=== PATIENT | female | born 1985 | race Caucasian/White ===

== ENCOUNTER → 2017-03-31 | Outpatient (REF) | payer BC | LOC: M LAB REF 12:55 | PROVIDERS: ATTEND Nurse Practitioner Adult Health | DX: R63.4 Abnormal weight loss (principal); F41.9 Anxiety disorder, unspecified ==

== ENCOUNTER → 2017-10-06 | Outpatient (REF) | payer BC | LOC: M LAB REF 12:08 | PROVIDERS: ATTEND Nurse Practitioner Adult Health | DX: J31.0 Chronic rhinitis (principal) ==

== ENCOUNTER → 2018-10-06 | Outpatient (CLI) | payer BC ==
[~2018-10-06] MED LIST: PROHANCE 279.3MG/ML 15ML VIAL (A9576) As Ordered; PROHANCE 279.3MG/ML 5ML VIAL (A9576) As Ordered
== END ==
LOC: M RAD 08:52
DX: R16.0 Hepatomegaly, not elsewhere classified (principal)
CPT/HCPCS: A9576

== ENCOUNTER → 2018-12-27 | Outpatient (CLI) | payer BC ==
[~2018-12-27] MED LIST changes: -PROHANCE 279.3MG/ML 15ML VIAL (A9576) As Ordered; +PROHANCE 279.3MG/ML 15ML VIAL (A9576) As Ordered ONE; -PROHANCE 279.3MG/ML 5ML VIAL (A9576) As Ordered
--- NOTE | 2018-12-27 13:36 | REP ---
MRI ABDOMEN WITH AND WITHOUT CONTRAST: TECHNIQUE: Multiple sequences are obtained in the axial and coronal planes prior to and following the intravenous administration of 15 mL ProHance. Comparison is made with prior study of 10/06/2018. Once again in the caudate lobe of the liver there is a mass which is heterogenous in signal, predominately slightly hyperintense on T2 with heterogenous arterial phase enhancement. It measures approximately 6.2 x 4.4 x 5.4 cm and is unchanged since the prior MRI of 10/06/2018. Smaller enhancing nodule in the adjacent posterior segment of the right lobe of the liver is also stable. No new liver mass is seen. Spleen, adrenals, pancreas, and kidneys are again unremarkable. I see no adenopathy or free fluid in the abdomen. IMPRESSION: Stable mass in the caudate lobe of the liver as discussed above. Continued followup is recommended. There is a stable subcentimeter nodule in the posterior segment of the right lobe of the liver which is benign. No new mass or adenopathy. Electronically Signed by Anil Glover MD 12/27/2018 11:40 P
== END ==
LOC: M RAD 08:21
PROVIDERS: ATTEND Surgery
DX: D37.6 Neoplasm of uncertain behavior of liver, gallbladder and bile ducts (principal); R16.0 Hepatomegaly, not elsewhere classified
CPT/HCPCS: 74183; A9576

== ENCOUNTER → 2019-05-31 | Outpatient (REF) | payer BC ==
[2019-05-31 18:15] LABS: CHLAMYDIA DNA AMPLIFICATION NEGATIVE (NEGATIVE); GC DNA AMPLIFICATION NEGATIVE (NEGATIVE)
[2019-06-01 11:43] LABS: HEPATITIS A ANTIBODY IGM NEGATIVE (NEGATIVE); HEPATITIS B CORE ANTIBODY IGM NEGATIVE (NEGATIVE); HEPATITIS B SURFACE ANTIGEN NEGATIVE (NEGATIVE); HEPATITIS C VIRUS ABY INDEX 0.1 INDEX (<0.8)
[2019-06-03 00:07] LABS: HSV IgM TYPES 1&2 1.45 Ratio (0.00-0.90)
== END ==
LOC: M LAB REF 16:39
PROVIDERS: ATTEND Nurse Practitioner Adult Health
DX: Z11.59 Encounter for screening for other viral diseases (principal)

== ENCOUNTER → 2019-10-18 | Outpatient (REF) | payer BC | LOC: M LABDRAW1 13:35 | PROVIDERS: ATTEND Nurse Practitioner Adult Health | DX: F41.9 Anxiety disorder, unspecified (principal) ==

== ENCOUNTER → 2020-02-24 | Outpatient (CLI) | payer BC ==
--- NOTE | 2020-02-24 10:56 | REP ---
PELVIC ULTRASOUND: Real-time sonographic evaluation of the pelvis is performed utilizing transabdominal and endovaginal technique. Bladder measures 4.2 x 5.9 cm. Uterus measures 5.8 x 3.2 x 3.8 cm. Endometrial thickness is approximately 5 mm. There is no endometrial fluid collection. The ovaries appear normal in size and echotexture, right ovary measuring 1.9 x 1.8 x 2.0 cm and left ovary 2.6 x 2.0 x 2.0 cm. There is no adnexal mass or free fluid. Blood flow is seen in each ovary with duplex Doppler evaluation, with no torsion. IMPRESSION: Negative pelvic ultrasound. Endometrial thickness is 5 mm. No mass or free fluid.
== END ==
LOC: M WHC 09:21
PROVIDERS: ATTEND Advanced Practice Midwife
DX: N92.6 Irregular menstruation, unspecified (principal)

== ENCOUNTER → 2020-03-07 | Outpatient (REF) | payer BC ==
[2020-03-07 15:58] LABS: FREE T4 0.82 NG/DL (0.76-1.46); THYROID STIMULATING HORMONE 1.29 uIU/ML (0.358-3.740)
[2020-03-07 16:00] LABS: LUTEINIZING HORMONE 7.4 mIU/mL; PROLACTIN 5.8 NG/ML
[2020-03-07 16:01] LABS: FOLLICLE STIMULATING HORMONE 4.5 mIU/mL
== END ==
LOC: M PLALAB 13:59
PROVIDERS: ATTEND Advanced Practice Midwife
DX: N92.6 Irregular menstruation, unspecified (principal)

== ENCOUNTER → 2021-04-23 | Outpatient (CLI) | payer OTHER ==
[~2021-04-23] MED LIST changes: +GASTROGRAFIN SOLUTION 30ML (Q9963) As Ordered ONE; +ISOVUE-370 76% 100ML VIAL As Ordered ONE; -PROHANCE 279.3MG/ML 15ML VIAL (A9576) As Ordered ONE
--- NOTE | 2021-04-24 04:36 | REP ---
INDICATION: NEOPLASM OF LIVER. COMPARISON: MRI dated 12/27/2018, 10/06/2018; CT dated 04/06/2013 TECHNIQUE: Axial contrast-enhanced images from the lung bases to the pubic symphysis using oral and 100 cc Isovue 370 intravenous contrast material. Precontrast and delayed images of the abdomen obtained along with coronal and sagittal reformations.. This CT examination was performed using the following dose reduction techniques: Automated exposure control, adjustment of mA and/or kv according to the patient's size, and the use of iterative reconstruction technique. FINDINGS: Evaluation of the liver demonstrates partial resection at the site of previous lesion. Liver parenchyma appears grossly homogeneous and normal without further abnormality identified. Spleen, pancreas, bilateral adrenal glands and kidneys are normal. Evidence for prior cholecystectomy noted. The enteric system is without obstruction or acute inflammatory process. Normal terminal ileum and appendix are identified in the right lower quadrant. Pelvis demonstrates normal bladder and age-appropriate uterus/adnexa. No ascites. No free air. No adenopathy. Abdominal aorta and vasculature appear normal. Musculoskeletal structures are intact. IMPRESSION: 1. Evidence for prior partial hepatic resection for mass lesion. No further hepatic abnormalities are identified. 2. No acute abdominopelvic pathology appreciated. <Electronically signed by Haroon Stanley > 04/24/21 [id number]
== END ==
LOC: M RAD 07:32
PROVIDERS: ATTEND Emergency Medicine
DX: Z90.89 Acquired absence of other organs (principal); Z90.49 Acquired absence of other specified parts of digestive tract
CPT/HCPCS: 74178; Q9963; Q9967

== ENCOUNTER → 2021-05-06 | Outpatient (CLI) | payer OTHER ==
--- NOTE | 2021-05-06 10:42 | PFTRPT ---
Site: [facility], [address] [place], [address] ID: [id number] Name: NAN MIGUEL Visit Date: 05/06/2021 Second ID: [id number] Referring Doctor: Ricardo Foy D.O. Reviewing Doctor: Maximino Puga MD Optimization Specialist: Ellen STILES RRT Age: 36 : 1985 Sex: Female Race: Height: 61.00 Inches Weight: 183.00 Lbs BSA: 1.82 Order IDs: [id number] Requested Test(s): <RESP-PFT.PFT B/A> Diagnosis: DYSPNEA test meet the ATS standards for acceptability and repeatability. Pt was given four puffs of albuterol for post bronchodilator. Review Status: Not Reviewed Pre-Bronch Post-Bronch Pred Actual %Pred Actual %Chng SPIROMETRY FVC (L) 3.38 3.33 98 3.50 5 FEV1 (L) 2.81 2.78 98 2.87 3 FEV1/FVC (%) 83 84 100 82 -1 FEF 25% (L/sec) 5.24 5.58 106 5.48 -1 FEF 50% (L/sec) 4.32 3.85 89 3.97 2 FEF 75% (L/sec) 1.76 1.32 74 1.62 23 FEF 25-75% (L/sec) 3.10 2.95 95 3.34 13 FEF Max (L/sec) 6.56 5.90 89 5.49 -6 FIVC (L) 3.31 3.43 3 FIF 50% (L/sec) 4.01 3.98 99 4.92 23 FIF Max (L/sec) 4.12 5.15 24 MVV (L/min) 99 89 90 Expiratory Time (sec) 6.67 6.61 Back Extrap Vol (L) 0.09 0.16 78 Time To FEFmax (sec) 0.090 0.160 78 LUNG VOLUMES SVC (L) 3.24 3.40 104 IC (L) 2.09 2.50 119 ERV (L) 1.15 0.90 78 TGV (L) 2.51 2.84 113 RV (Pleth) (L) 1.36 1.93 142 TLC (Pleth) (L) 4.60 5.33 115 RV/TLC (Pleth) (%) 29 36 125 DIFFUSION DLCOunc (ml/min/mmHg) 23.06 21.14 91 DL/VA (ml/min/mmHg/L) 5.01 4.64 92 VA (L) 4.60 4.56 99 BHT (sec) 10.59 IVC (L) 3.32 TLC (SB) (L) 4.71 AIRWAYS RESISTANCE Raw (cmH2O/L/s) 1.86 0.98 52 Gaw (L/s/cmH2O) 1.03 1.04 100 sRaw (cmH2O*s) 4.76 2.75 57 sGaw (1/cmH2O*s) 0.20 0.37 185
== END ==
LOC: M CARPUL 09:49
PROVIDERS: ATTEND Emergency Medicine
DX: R06.09 Other forms of dyspnea (principal)

== ENCOUNTER → 2021-05-27 | Outpatient (CLI) | payer OTHER ==
[~2021-05-27] MED LIST changes: -GASTROGRAFIN SOLUTION 30ML (Q9963) As Ordered ONE; -ISOVUE-370 76% 100ML VIAL As Ordered ONE; +METHACHOLINE KIT (J7674) INH ONE
--- NOTE | 2021-05-28 07:40 | PFTRPT ---
Height: 61.00 Inches Weight: 183.00 Lbs BSA: 1.82 Diagnosis: WHEEZING DATE: 05/27/2021 ORDERED BY: Ricardo Foy D.O. QUALITY: Study of excellent technical quality. PROCEDURE: Under protocol, methacholine was administered. At a dose of 0.25 mg or 1.375 CDUs, a 30% decline in the FEV1 was noted. PC of 0.09 is significant. Flow rates did return to baseline post bronchodilator administration. IMPRESSION: Positive methacholine challenge study. MTDD
== END ==
LOC: M CARPUL 15:06
PROVIDERS: ATTEND Emergency Medicine
DX: R06.00 Dyspnea, unspecified (principal)
CPT/HCPCS: 94070; J7674